=== PATIENT | male | born 1970 | race Two or more races ===

== ENCOUNTER 2018-12-09 07:09 | Emergency (ER) | payer SELFPAY ==
[~2018-12-09] VITALS: Ht 160 cm; Wt 72.6 kg
--- NOTE | 2018-12-09 07:17 | NUR ---
ED Nurse Note: Pt came in from home due to R elbow pain, hit a doorknob 1 month ago at work. AOx4, VSS esdras. Will cont to monitor.
[2018-12-09 07:18] VITALS: BP 124/71
--- NOTE | 2018-12-09 07:38 | Diagnostic Imaging Report ---
EXAM: XR Right Elbow Complete, 3 or More Views. CLINICAL HISTORY: PAIN TECHNIQUE: Frontal, lateral and oblique views of the right elbow. COMPARISON: No relevant prior studies available. FINDINGS: Bones: Unremarkable. No acute fracture. Joints: Unremarkable. No dislocation. No elbow joint effusion. Soft tissues: Unremarkable. IMPRESSION: No fracture or dislocation.
[2018-12-09] MEDS ORDERED: IBUPROFEN600 MG ORAL (07:47)
[2018-12-09 07:54] VITALS: BP 124/71
--- NOTE | 2018-12-09 07:54 | NUR ---
ER DISCHARGE NOTE: Patient is cleared to be discharged per ERMD, pt is aox4, on room air, with stable vital signs. pt was given dc and prescription instructions, pt was able to verbalize understanding, pt id band removed. pt is able to ambulate with steady gait. pt took all belongings.
--- NOTE | 2018-12-09 08:11 | Emergency Room Report ---
History of Present Illness General Chief Complaint: Upper Extremity Injury Source: Patient Present Illness HPI 48-year-old male presents ED for evaluation. Patient complaining of right elbow pain. States that 1 month ago he hit his elbow against a doorknob is been having persistent pain since. Pain is throbbing, 8 out of 10, nonradiating. Denies any aggravating or relieving factors. Denies any other associated symptoms Allergies: Coded Allergies: No Known Allergies (Unverified , 12/09/18) Patient History Past Medical History: none Past Surgical History: none Pertinent Family History: none Social History: Denies: smoking, alcohol use, drug use Immunizations: UTD Reviewed Nursing Documentation: PMH: Agreed; PSxH: Agreed Nursing Documentation-PMH Past Medical History: No History, Except For Review of Systems All Other Systems: negative except mentioned in HPI Physical Exam Vital Signs Date Time Temp Pulse Resp B/P (MAP) Pulse Ox O2 Delivery O2 Flow Rate FiO2 12/09/18 07:12 98.1 43 14 124/71 (88) 96 Room Air Sp02 EP Interpretation: reviewed, normal General Appearance: no apparent distress, alert, GCS 15, non-toxic Head: normocephalic Eyes: bilateral eye normal inspection, bilateral eye PERRL ENT: normal ENT inspection Neck: normal inspection Respiratory: normal inspection Cardiovascular #1: normal inspection Gastrointestinal: normal inspection Rectal: deferred Genitourinary: no CVA tenderness Musculoskeletal: tender - TTP distal radial aspect. no bruising/crepitus. full ROM R elbow. no deformity Neurologic: alert, oriented x3, responsive, motor strength/tone normal, sensory intact, speech normal Psychiatric: normal inspection Skin: normal color Lymphatic: normal inspection Procedures Splinting Splinting : Consent: Verbal Pre-Made Type: LESLIE wrap - R elbow Pre-Proc Neuro Vasc Exam: normal Post-Proc Neuro Vasc Exam: normal Patient Tolerated: Well Complications: None Medical Decision Making Diagnostic Impression: Primary Impression: Elbow pain Qualified Codes: M25.521 - Pain in right elbow ER Course Hospital Course 48-year-old M presents to ED complaining of R elbow pain Differential diagnoses include: Fracture, dislocation, sprain, contusion Clinical course Patient placed on stretcher. After initial history and physical, I ordered pain medications and Xrays of R elbow Xrays read shows no acute fracture/dislocation. placed in leslie wrap discussed findings with patient. Consideration for lateral epicondylitis. Safe for discharge with close outpatient follow-up. Will provide Ortho referrals Diagnosis - elbow pain Stable and discharged to home with prescription for Motrin. apply ice, weight bear as tolerated. Followup with PMD/ortho. Return to ED if symptoms recur or worsen Other X-Ray Diagnostic Results Other X-Ray Diagnostic Results : X-Ray ordered: R elbow # of Views/Limited Vs Complete: 3 View Indication: Pain EP Interpretation: Yes Interpretation: no dislocation, no soft tissue swelling, no fractures Impression: No acute disease Electronically Signed by: Electronically signed by Arpan Mahmood MD Last Vital Signs Date Time Temp Pulse Resp B/P (MAP) Pulse Ox O2 Delivery O2 Flow Rate FiO2 12/09/18 07:54 98.1 95 14 124/71 96 Room Air Status: improved Disposition: HOME, SELF-CARE Condition: Stable Scripts Ibuprofen* (MOTRIN*) 600 Mg Tablet 600 MG ORAL Q8H PRN for For Pain, #30 TAB 0 Refills Prov: Arpan Mahmood MD 12/09/18 Referrals: NON PHYSICIAN (PCP) [facility] Open 24 hour /7 days a week by Appointment Only [address] [facility] [address] [facility] [id number] Patient Instructions: Lateral Epicondylitis With Rehab-[facility] Arpan Mahmood MD Dec 09, 2018 08:11
== END 2018-12-09 07:54 | disposition home or self-care (01) ==
LOC: EMR 07:20
DX: M25.521 Pain in right elbow (principal)
CPT/HCPCS: 99283

== ENCOUNTER 2020-06-07 03:47 | Emergency (ER) | payer MEDICAID ==
[~2020-06-07] VITALS: Ht 162.6 cm; Wt 81.6 kg
[~2020-06-07 03:47] MED LIST: IBUPROFEN600 MG ORAL
--- NOTE | 2020-06-07 04:05 | NUR ---
ED Nurse Note: Pt walked into the ED due to bilateral leg cramps but more on the left leg x 4hrs ago. Pt stated; he took ibuprofen but it did not help. pt denied trauma or injury. Pt tested covid + x 2wks ago. pt got retested yesterday and he is waiting for result. vitals are stable. Iv started; blood drawn and sent to the lab. Pt is A&ox4, verbal, and ambulatory.
[2020-06-07] MEDS ORDERED: Ketorolac 30mg Inj IV ONE (04:15)
[2020-06-07] MEDS ORDERED: Methocarbamol 750mg tab ORAL ONE (04:15)
[2020-06-07 04:16] VITALS: BP 131/106
[2020-06-07 04:16] LABS: BASOPHILS % (AUTO) 1.4 % (0.0-2.0); EOSINOPHILS % (AUTO) 1.9 % (0.0-3.0); HEMATOCRIT 40.9 % (42.0-52.0); HEMOGLOBIN 14.6 G/DL (14.2-18.0); LYMPHOCYTES % (AUTO) 32.9 % (20.0-45.0); MEAN CORPUSCULAR VOLUME 89 FL (80-99); MONOCYTES % (AUTO) 8.5 % (1.0-10.0); NEUTROPHILS % (AUTO) 55.3 % (45.0-75.0); PLATELET COUNT 295 K/UL (150-450); RED BLOOD COUNT 4.62 M/UL (4.70-6.10); RED CELL DISTRIBUTION WIDTH 12.9 % (11.6-14.8); WHITE BLOOD COUNT 6.2 K/UL (4.8-10.8)
--- NOTE | 2020-06-07 04:23 | Emergency Room Report ---
History of Present Illness General Chief Complaint: Pain Source: Patient Present Illness HPI 49-year-old male with recent diagnosis of COVID presents with muscle cramps and "burning" to the bilateral anterior lateral thighs (L>R) and lateral leg/foot bilaterally. He states that the symptoms woke him up from sleep at midnight. 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 He denies midline back pain, fever, chills, trauma, saddle anesthesia, urinary retention, bowel or bladder incontinence, rash, photophobia, headache, chest pain, IV drug use, trauma, or any other symptoms. The patient's symptoms were gradual onset, severity was moderate, duration since 1 day. Quality: States he feels like his feet are "burning" Past medical history: Denies Past surgical history: Denies Smoking: Denies Alcohol use: Occasional Drug use: Denies Review of systems: CONST: No fevers or chills, No night sweats PULMONARY: No productive cough, No shortness of breath CARDIAC: No chest pain, No palpitations GI: No vomiting, No diarrhea , No melena_or_BRBPR : No dysuria, No hematuria, No discharge NEURO: No new_focal_weakness_or_paresthesia to the anterior left thigh big toe bilaterally. And no confusion, No vision changes 14 point Review of Systems is otherwise negative except per HPI Physical Exam: GENERAL: Awake_alert_ nontoxic, no acute distress Spo2 98% on RA -normal EYES: Extraocular muscles are intact. Conjunctivae clear. Lids without swelling ENT: External nose and ear normal_in_appearance. Oropharynx clear. Head_a traumatic, Moist_oral_mucosa NECK: No JVD. No meningismus. No thyromegaly. Supple. Trachea midline RESP: Normal respiratory effort. Symmetric rise. No stridor. Clear_to_auscultation_No_rales_No_wheezes CARDIAC: Regular rate and regular rhytm. No_significant pedal edema. Negative Homans' sign bilaterally DP and PT pulses 2/4 bilateral LE ABDOMEN: Soft. Nondistended. Nontender_No_rebound_or_guarding. MSK: Normal muscle tone, without rigidity. Extremities without asymmetric deformity or swelling. SKIN: Warm and dry. No visible cyanosis or pallor. No petechiae NEUROLOGIC: Alert, oriented x3. Motor_and_sensation_grossly_intact. No truncal ataxia. Gait_normal Dec sensation in the lateral femoral cutaneous nerve distribution (anterolateral thigh) No saddle anesthesia. No midline cervical, thoracic, lumbar spinal step-offs or deformity. Negative Romberg sign. Psych: Normal mood and affect, normal judgment and insight - COORDINATION OF CARE Case was discussed with: Patient Any labs and imaging that were ordered were interpreted as part of the medical decision making: Medical Decision Making/Plan: Differential diagnosis includes lateral femoral cutaneous syndrome, musculoskeletal pain, cramps, hypokalemia, deep venous thrombosis, among others. DOUBT fracture, dislocation, soft tissue infection such as cellulitis or abscess, necrotizing fasciitis, compartment syndrome, septic arthritis, arterial occlusion Patient is afebrile and neuro intact. He complains of paresthesia/burning sensation in the lateral femoral cutaneous N distribution (L>R). He is able to ambulate without ataxia or weakness. No focal deficit or abnormal cerebellar signs. Distally the patient has capillary refill <2 seconds and strong pulses. There is no pallor or pain out of proportion to exam. There is no significant swelling or venous engorgement. No evidence of arterial occlusion or deep venous thrombosis. The associated joints have full range of motion without any significant pain or restriction in mobility. There is no crepitus or pain out of proportion to exam and the patient is afebrile and nontoxic. There is no overlying redness, induration, tenderness, pus, or evidence of drainable fluid collection. No evidence of septic arthritis, necrotizing fasciitis, or soft tissue infection such as abscess or cellulitis. Patient has no history of malignancy, active or distant history. Patient has no B symptoms: no unintentional weight loss, night sweats, or fevers. No longstanding steroid or other immunosuppressant usage. No mechanism for significant trauma. Patient has no vertebral deformity or midline tenderness and has a normal gait. Patient has no significant risk factors for spinal epidural emergency such as fever, IVDU, HIV, or anticoagulant use. Patient is neurologically intact without any lower extremity weakness / numbness, saddle anesthesia, urinary retention or fecal incontinence. No evidence of any emergent process of the spinal cord or cauda equina at this time. Ultrasound of the BLE is negative for DVT. Labs show no acute abnormalities. ED intervention included IVFs, toradol, and neurontin with relief of symptoms. Suspect dehydration vs lateral femoral cutaneous neuropathy. Recommend loose fitting clothing, NSAIDS, and weight loss. The patient was counseled that they need to see their primary medical doctor in the next 1-2 days for reevaluation and further treatment, and to return immediately if symptoms change or worsen. 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 Results Rhythm Strip Time: 04:22 EP Interpretation: yes Rate: 62 Rhythm: NSR, no PVC's, no ectopy CT/MRI/US Diagnostic Results CT/MRI/US Diagnostic Results : Impression US Duplex Bilateral Lower Extremities Veins CLINICAL HISTORY: DVT TECHNIQUE: Real-time duplex ultrasound scan of the bilateral lower extremity veins integrating B-mode two-dimensional vascular structure, Doppler spectral analysis, color flow Doppler imaging and compression. COMPARISON: No relevant prior studies available. FINDINGS: Right deep veins: Unremarkable. No DVT in the right common femoral, femoral, proximal deep femoral or popliteal veins. The veins demonstrate normal color flow, are normally compressible, with normal phasic flow and/or augmentation response. Right superficial veins: Unremarkable. No thrombus in the visualized right great saphenous vein. Left deep veins: Unremarkable. No DVT in the left common femoral, femoral, proximal deep femoral or popliteal veins. The veins demonstrate normal color flow, are normally compressible, with normal phasic flow and/or augmentation response. Left superficial veins: Unremarkable. No thrombus in the visualized left great saphenous vein. Soft tissues: No acute findings. No popliteal cyst. IMPRESSION: Normal bilateral lower extremity duplex venous ultrasound. Dictated By: Guillermo Lainez M.D. Last Vital Signs Date Time Temp Pulse Resp B/P (MAP) Pulse Ox O2 Delivery O2 Flow Rate FiO2 06/07/20 03:51 98.4 62 20 131/106 (274) 41 Disposition: HOME, SELF-CARE Admit Decision Time: 06:00 Condition: Stable Scripts Lidocaine Patch* (Lidoderm Patch*) 1 Each Adh..patch 1 PATCH TOPIC DAILY, #7 PATCH 0 Refills Patch(es) may remain in place for up to 12 hours in any 24-hour period. Prov: Zainab Andujar D.O. 06/07/20 Methocarbamol* (ROBAXIN-750*) 750 Mg Tablet 750 MG PO QID, #28 TAB 0 Refills Prov: Zainab Andujar D.O. 06/07/20 Naproxen* (NAPROXEN*) 500 Mg Tablet.dr 500 MG ORAL TWICE A DAY for 7 Days, #14 TAB Prov: Zainab Andujar D.O. 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 Hydrate and drink plenty of water. Follow-up with your doctor sooner if your condition requires a more timely clinical reevaluation. Return to the emergency department immediately if you feel that your condition is worsening or if you have any new or concerning symptoms. Review your discharge instructions and take any prescriptions given as instructed. [facility] PROVIDES FREE OR LOW-COST HEALTH SERVICES TO PEOPLE WHO CAN SHOW PROOF THAT THEY LIVE IN [facility]. TO FIND MORE CLINICS PARTNERED WITH THE [facility], [facility] TO PROVIDE SERVICE, PLEASE CALL . Zainab Andujar D.O. Jun 07, 2020 04:22
[2020-06-07 04:37] LABS: APPEARANCE,URINE CLEAR; BILIRUBIN, URINE NEGATIVE (NEGATIVE); COLOR,URINE PALE YELLOW; GLUCOSE, URINE (UA) NEGATIVE (NEGATIVE); KETONES,URINE NEGATIVE (NEGATIVE); LEUKOCYTE ESTERASE ,URINE NEGATIVE (NEGATIVE); NITRITE,URINE NEGATIVE (NEGATIVE); PH,URINE 7 (4.5-8.0); PROTEIN,URINE NEGATIVE (NEGATIVE); UROBILINOGEN,URINE NORMAL MG/DL (0.0-1.0)
[2020-06-07 04:41] LABS: ANION GAP 4 mmol/L (5-15); BLOOD UREA NITROGEN 9 mg/dL (7-18); CALCIUM 8.9 MG/DL (8.5-10.1); CARBON DIOXIDE 30 MMOL/L (21-32); CHLORIDE 104 MMOL/L (98-107); CREATININE 0.7 MG/DL (0.55-1.30); POTASSIUM 3.7 MMOL/L (3.5-5.1); SODIUM 138 MMOL/L (136-145)
[2020-06-07 04:44] LABS: ALANINE AMINOTRANSFERASE 31 U/L (12-78); ALBUMIN 3.4 G/DL (3.4-5.0); ALBUMIN/GLOBULIN RATIO 0.9 (1.0-2.7); ALKALINE PHOSPHATASE 81 U/L (46-116); ASPARTATE AMINO TRANSFERASE 25 U/L (15-37); BILIRUBIN,TOTAL 0.4 MG/DL (0.2-1.0); PHOSPHORUS 3.5 MG/DL (2.5-4.9)
[2020-06-07] MEDS ORDERED: LIDODERM700 M1 TOPIC (05:21)
[2020-06-07] MEDS ORDERED: ROBAXIN-750750 MG PO (05:21)
[2020-06-07] MEDS ORDERED: NAPROXEN500 M1 ORAL (05:21)
--- NOTE | 2020-06-07 05:35 | NUR ---
US in process.
--- NOTE | 2020-06-07 06:23 | Diagnostic Imaging Report ---
EXAM: US Duplex Bilateral Lower Extremities Veins CLINICAL HISTORY: DVT TECHNIQUE: Real-time duplex ultrasound scan of the bilateral lower extremity veins integrating B-mode two-dimensional vascular structure, Doppler spectral analysis, color flow Doppler imaging and compression. COMPARISON: No relevant prior studies available. FINDINGS: Right deep veins: Unremarkable. No DVT in the right common femoral, femoral, proximal deep femoral or popliteal veins. The veins demonstrate normal color flow, are normally compressible, with normal phasic flow and/or augmentation response. Right superficial veins: Unremarkable. No thrombus in the visualized right great saphenous vein. Left deep veins: Unremarkable. No DVT in the left common femoral, femoral, proximal deep femoral or popliteal veins. The veins demonstrate normal color flow, are normally compressible, with normal phasic flow and/or augmentation response. Left superficial veins: Unremarkable. No thrombus in the visualized left great saphenous vein. Soft tissues: No acute findings. No popliteal cyst. IMPRESSION: Normal bilateral lower extremity duplex venous ultrasound.
[2020-06-07 08:12] VITALS: BP 128/75
--- NOTE | 2020-06-07 08:12 | NUR ---
ED Nurse Note: Pt cleared by ERMD for discharge. DC instructions/prescription was given and explained to pt and verbalized understanding of teachings. All medical deviecs such as ID band and IV line removed. Pt is AAO x4, ambulatory and left with all personal belongings.
== END 2020-06-07 09:00 | disposition home or self-care (01) ==
LOC: EMR 04:04
DX: R25.2 Cramp and spasm (principal); G57.13 Meralgia paresthetica, bilateral lower limbs; R20.2 Paresthesia of skin
CPT/HCPCS: 36415; 80053; 81003; 83690; 83735; 84100; 85025; 93970; 96361; 96374; J1885; J7030; Z7502; 99284